=== PATIENT | male | born 1995 | race Caucasian/White ===

== ENCOUNTER 2017-10-09 11:35 | Emergency (ER) | payer BC, OTHER ==
[~2017-10-09] VITALS: Ht 177.8 cm; Wt 68.0 kg
[2017-10-09 11:43] VITALS: BP 147/91
[2017-10-09] MEDS: TUBERCULIN PPD 5 UNIT/0.1 ML ID ONE (12:30)
== END 2017-10-09 12:50 | disposition home or self-care (01) ==
LOC: ER 11:35
DX: R76.11 Nonspecific reaction to tuberculin skin test without active tuberculosis (principal); Z11.1 Encounter for screening for respiratory tuberculosis

== ENCOUNTER 2018-09-09 00:09 | Emergency (ER) | payer BC, OTHER ==
[~2018-09-09] VITALS: Ht 177.8 cm; Wt 102.1 kg
[2018-09-09] MEDS ORDERED: cefTRIAXone SOD 1,000 MG VL ONE (00:51)
[2018-09-09] MEDS ORDERED: TETANUS-DIPTH-ACEL PERTUSSIS 0.5ML SYRG IM ONE (01:00)
[2018-09-09] MEDS ORDERED: cefTRIAXone SOD 1,000 MG VL IM ONE (01:00)
[2018-09-09 01:09] VITALS: BP 131/91
[2018-09-09 03:03] LABS: Hepatitis B Surface Antibody Negative
[2018-09-09 04:22] LABS: Hepatitis B Surface Antigen Negative (Negative)
== END 2018-09-09 05:32 | disposition home or self-care (01) ==
LOC: EEVIPCON 00:12 → ER 00:12
DX: S61.200A Unspecified open wound of right index finger without damage to nail, initial encounter (principal); S91.301A Unspecified open wound, right foot, initial encounter; W27.3XXA Contact with needle (sewing), initial encounter; Y93.89 Activity, other specified; Y99.0 Civilian activity done for income or pay; Y92.239 Unspecified place in hospital as the place of occurrence of the external cause
CPT/HCPCS: 36415; 86703; 86706; 86803; 87340; 90471; 90715; 96372; 99283; J0696

== ENCOUNTER → 2018-10-15 | Outpatient (CLI) | payer OTHER | END | disposition home or self-care (01) | LOC: LAB 13:43 | PROVIDERS: ATTEND Nurse Practitioner | DX: S91.331A Puncture wound without foreign body, right foot, initial encounter (principal); Z77.21 Contact with and (suspected) exposure to potentially hazardous body fluids; X58.XXXA Exposure to other specified factors, initial encounter; Y93.89 Activity, other specified; Y92.89 Other specified places as the place of occurrence of the external cause; Y99.8 Other external cause status | CPT/HCPCS: 36415; 86703; 86706; 86803; 87340 ==